=== PATIENT | male | born 1980 | race Caucasian/White ===

== ENCOUNTER 2020-07-10 06:00 | Observation (INO) | payer SELFPAY ==
[~2020-07-10] VITALS: Ht 177.8 cm; Wt 122.7 kg
--- NOTE | 2020-07-10 06:27 | EKG ---
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
[2020-07-10] MEDS ORDERED: NITROGLYCERIN SUBLINGUAL 0.4 MG BOTTLE OF 25. SL PRN (06:45)
[2020-07-10 06:53] LABS: BASO # 0.1 x10^3/uL (0.0-0.2); BASO % 1 % (0-3); EOS # 0.6 x10^3/uL (0.0-0.7); EOS % 7 % (0-3); HEMATOCRIT 45.3 % (39.0-53.0); HEMOGLOBIN 15.6 g/dL (13.0-17.5); LYMPH # 2.4 x10^3/uL (1.0-4.8); LYMPH % 27 % (24-48); MEAN CORPUSCULAR HEMOGLOBIN 29 pg (25-35); MEAN CORPUSCULAR HGB CONC 35 g/dL (31-37); MEAN CORPUSCULAR VOLUME 84 fL (79-100); MONO # 1.1 x10^3/uL (0.0-1.1); MONO % 12 % (0-9); NEUT # 4.7 x10^3/uL (1.8-7.7); NEUT % 53 % (31-73); PLATELET COUNT 278 x10^3/uL (140-400); RED BLOOD COUNT 5.42 x10^6/uL (4.30-5.70); RED CELL DISTRIBUTION WIDTH 14.6 % (11.5-14.5); WHITE BLOOD COUNT 8.8 x10^3/uL (4.0-11.0)
[2020-07-10] MEDS ORDERED: ASPIRIN CHEWABLE 81 MG TABLET. PO ONE (07:00)
[2020-07-10 07:08] LABS: CALCIUM 9.1 mg/dL (8.5-10.1); CREATININE 0.9 mg/dL (0.7-1.3); GFR 92.5; POTASSIUM 4.1 mmol/L (3.5-5.1)
--- NOTE | 2020-07-10 07:08 | ED.ADGEN ---
Past Medical History Past Medical History: Other Additional Past Medical Histor: DENTAL INFECTION FINISHED ANTIBIOTICS YESTERDAY Past Surgical History: No Surgical History Smoking Status: Current Every Day Smoker Alcohol Use: None General Adult EDM: Chief Complaint: CHEST PAIN HPI: HPI: Patient is a 40-year-old previously healthy male who presents to the emergency room complaining of chest pain. Patient states that around 430 this morning he suddenly got this squeezing pressure like pain in his substernal chest with additional intermittent burning pressure pains throughout the left side of his chest. The intermittent pains last a couple of minutes before going away. He also has a constant pain in his left side of his back. He also has some burning pain that goes through his abdomen with lightheadedness, nausea, intermittent sweating, difficulty getting his breath. Patient is never had anything like this previously. He has not been ill recently. Nothing seems to make the pain better or worse. Of note patient has been taking ibuprofen and aspirin over the weekend for dental pain. Review of Systems: Review of Systems: Complete ROS is negative unless otherwise documented in HPI Current Medications: Current Medications Medications (Trade) Dose Ordered Sig/[place] Start Time Stop Time Status Last Admin Dose Admin Aspirin (Aspirin Chewable) 324 mg 1X ONCE 07/10/20 07:00 07/10/20 07:01 DC 07/10/20 07:19 324 MG Info (CONTRAST GIVEN -- Rx MONITORING) 1 each PRN DAILY PRN 07/10/20 07:15 07/12/20 07:14 Iohexol (Omnipaque 350 Mg/ml) 90 ml 1X ONCE 07/10/20 07:15 07/10/20 07:16 DC 07/10/20 07:44 90 ML Morphine Sulfate (Morphine Sulfate) 5 mg 1X ONCE 07/10/20 07:15 07/10/20 07:16 DC 07/10/20 07:21 5 MG Nitroglycerin (Nitrostat) 0.4 mg PRN Q5MIN PRN 07/10/20 06:45 07/10/20 06:54 DC Ondansetron HCl (Zofran) 4 mg 1X ONCE 07/10/20 07:15 07/10/20 07:16 DC 07/10/20 07:20 4 MG Allergies: Allergies: Allergies Coded Allergies Type Severity Reaction Last Updated Verified No Known Drug Allergies 07/10/20 No Physical Exam: PE: General: Awake, alert, NAD. Well Nourished, well hydrated. Cooperative HEENT: Atraumatic, EOMI, PERRL, airway patent, moist oral mucosa Neck: Supple, trachea midline Respiratory: CTA bilaterally, normal effort, no wheezing/crackles CV: RRR, no murmur, cap refill <2 GI: Soft, nondistended, nontender, no masses MSK: No obvious deformities Skin: Warm, dry, intact Neuro: A&O x3, speech NL, sensory and motor grossly intact, no focal deficits Psych: Normal affect, normal mood, not suicidal or homicidal Current Patient Data: Labs: Laboratory Tests Test 07/10/20 06:18 White Blood Count 8.8 x10^3/uL (4.0-11.0) Red Blood Count 5.42 x10^6/uL (4.30-5.70) Hemoglobin 15.6 g/dL (13.0-17.5) Hematocrit 45.3 % (39.0-53.0) Mean Corpuscular Volume 84 fL (79-100) Mean Corpuscular Hemoglobin 29 pg (25-35) Mean Corpuscular Hemoglobin Concent 35 g/dL (31-37) Red Cell Distribution Width 14.6 % (11.5-14.5) H Platelet Count 278 x10^3/uL (140-400) Neutrophils (%) (Auto) 53 % (31-73) Lymphocytes (%) (Auto) 27 % (24-48) Monocytes (%) (Auto) 12 % (0-9) H Eosinophils (%) (Auto) 7 % (0-3) H Basophils (%) (Auto) 1 % (0-3) Neutrophils # (Auto) 4.7 x10^3/uL (1.8-7.7) Lymphocytes # (Auto) 2.4 x10^3/uL (1.0-4.8) Monocytes # (Auto) 1.1 x10^3/uL (0.0-1.1) Eosinophils # (Auto) 0.6 x10^3/uL (0.0-0.7) Basophils # (Auto) 0.1 x10^3/uL (0.0-0.2) D-Dimer (Izzy) 0.41 ug/mlFEU (0.00-0.50) Sodium Level 137 mmol/L (136-145) Potassium Level 4.1 mmol/L (3.5-5.1) Chloride Level 101 mmol/L (98-107) Carbon Dioxide Level 27 mmol/L (21-32) Anion Gap 9 (6-14) Blood Urea Nitrogen 11 mg/dL (8-26) Creatinine 0.9 mg/dL (0.7-1.3) Estimated GFR (Cockcroft-Gault) 92.5 Glucose Level 112 mg/dL (70-99) H Calcium Level 9.1 mg/dL (8.5-10.1) Troponin I Quantitative < 0.017 ng/mL (0.000-0.055) Laboratory Tests 07/10/20 06:18 Laboratory Tests 07/10/20 06:18 Vital Signs: Vital Signs Date Time Temp Pulse Resp B/P (MAP) Pulse Ox O2 Delivery O2 Flow Rate FiO2 07/10/20 08:55 61 136/78 (97) 95 Room Air 07/10/20 07:21 18 07/10/20 06:01 97.9 97.9 EKG: EKG: [] Heart Score: C/O Chest Pain: Yes HEART Score for Chest Pain: HEART Score for Chest Pain Response (Comments) Value History Moderately Suspicious 1 ECG Normal 0 Age < 45 0 Risk Factors 1 or 2 Risk Factors 1 Troponin < Normal Limit 0 Total 2 Risk Factors: Risk Factors: DM, Current or recent (<one month) smoker, HTN, HLP, family history of CAD, obesity. Risk Scores: Score 0 - 3: 2.5% MACE over next 6 weeks - Discharge Home Score 4 - 6: 20.3% MACE over next 6 weeks - Admit for Clinical Observation Score 7 - 10: 72.7% MACE over next 6 weeks - Early Invasive Strategies Radiology/Procedures: Radiology/Procedures: [] Course & Med Decision Making: Course & Med Decision Making Pertinent Labs and Imaging studies reviewed. (See chart for details) Patient is a 40-year-old male who presents to the emergency room after developing sudden onset chest pain with lightheadedness and associated back pain. Vitals at this time are stable. Given patient's story there is concern for possible aortic dissection. A CT angiogram of the chest, abdomen, pelvis will be ordered to evaluate for any signs of dissection or other pathology. Cardiac work-up was also ordered including CBC, CMP, BNP, EKG, troponin. EKG shows normal sinus rhythm without any ST elevation. Patient was given morphine for pain and Zofran for nausea.Patient is going to be admitted for chest pain. Dragon Disclaimer: Dragon Disclaimer: This electronic medical record was generated, in whole or in part, using a voice recognition dictation system. DIGNA CHANG MD Jul 10, 2020 07:08
[2020-07-10] MEDS ORDERED: MORPHINE SULFATE 10 MG/ML VIAL. IV ONE (07:15)
[2020-07-10] MEDS ORDERED: ONDANSETRON PF 4 MG/2 ML VIAL. IVP ONE (07:15)
[2020-07-10] MEDS ORDERED: CONTRAST GIVEN. MC PRN (07:15)
[2020-07-10] MEDS ORDERED: IOHEXOL 350 MG/ML 100 ML VIAL. IV ONE (07:15)
--- NOTE | 2020-07-10 07:57 | RAD ---
PA and lateral chest. HISTORY: Chest pain PA and lateral views were taken of the chest. Lungs are free of infiltrates. Heart is normal in size. There is no effusion. IMPRESSION: 1. No acute infiltrates. Electronically signed by: Kemar Rios MD (07/10/2020 7:55 AM) [id number]
--- NOTE | 2020-07-10 08:18 | RAD ---
EXAM: CT angiogram Chest, Abdomen, and Pelvis with and without IV contrast INDICATION: Reason: chest pain to the back, dizziness, nausea, abd pain, dissection?? / Spl. Instruct ions: IV OMNI 350 90 MLS / History: TECHNIQUE: Multi-detector row CT images were acquired from the thoracic inlet through the ischial tu berosities with and without the use of IV contrast. Sagittal and coronal images were acquired from th e transaxial data. All CT scans performed at this facility utilize dose optimization techniques as ap propriate to the exam, including the following: Automated exposure control and adjustment of the mA a nd/or KV according to patient size (this includes techniques or standardized protocols for targeted e xams where dose is indication/reason for exam). IV CONTRAST: Administered ORAL CONTRAST: Not administered COMPARISON: Chest x-ray of 07/10/2020 FINDINGS: CHEST: CARDIOVASCULAR: Precontrast images show a tortuous thoracic aorta with no evidence of an intramural hematoma or aneurysm. Postcontrast images show no evidence of aortic dissection or flow limiting sten osis with the ascending thoracic aorta measuring 3.5 cm in diameter. There is a two-vessel aortic arc h. The heart is normal in size and shows no pericardial effusion. MEDIASTINUM & MANJIT: Borderline enlarged right lower paratracheal node measuring 10 mm. LUNGS: Respiratory motion artifact degrades detail. There is a solitary groundglass opacity in the la teral basal left lower lobe measuring 1.5 x 1.0 x 2.5 cm (axial image 123 series 2 and sagittal image 37 of series 7). PLEURAL SPACE: No pleural effusions or pneumothorax. OSSEOUS & SOFT TISSUE: Mildly enlarged right level 1 cervical lymph nodes measuring 12 mm (image 4 se thomas 2) are incidentally noted. ABDOMEN/PELVIS: LIVER: Fatty BILIARY SYSTEM: Gallbladder is unremarkable. Bile ducts are not dilated. PANCREAS: Unremarkable SPLEEN: Unremarkable ADRENALS: Unremarkable KIDNEYS & URETERS: Unremarkable BLADDER: Unremarkable REPRODUCTIVE ORGANS: Unremarkable GASTROINTESTINAL: The stomach, small bowel, and colon are unremarkable. The appendix is normal. MESENTERY/PERITONEUM/RETROPERITONEUM: Unremarkable VASCULAR: Normal caliber abdominal aorta with no evidence of dissection or flow limiting stenosis. S tomas renal arteries bilaterally. Celiac axis, SMA and VALENTINA are widely patent. Pelvic inflow and outfl ow vessels are unremarkable. No periaortic soft tissue stranding. LYMPH NODES: Unremarkable. OSSEOUS & SOFT TISSUES: Unremarkable IMPRESSION: Normal CT angiogram of the chest, abdomen, and pelvis; no evidence of aortic dissection. Electronically signed by: Paul Ricci MD (07/10/2020 8:16 AM) [id number]
[2020-07-10 11:25] VITALS: BP 137/86
[2020-07-10] MEDS ORDERED: MORPHINE IR 15 MG TABLET PO PRN (14:15)
== END 2020-07-10 13:20 | disposition left against medical advice (07) ==
LOC: ER 06:00 → ED HOLD 09:25
PROVIDERS: ADMIT Internal Medicine; ATTEND Internal Medicine
DX: R07.89 Other chest pain (principal); R42 Dizziness and giddiness; M54.9 Dorsalgia, unspecified; F17.200 Nicotine dependence, unspecified, uncomplicated; Z98.890 Other specified postprocedural states; Z79.82 Long term (current) use of aspirin
CPT/HCPCS: 36415; 71046; 71275; 74174; 80048; 84484; 85025; 85379; 93005; 96374; 96375; 99285; G0378; J2270; J2405; Q9967; G0379